=== PATIENT | male | born 1955 | race Hispanic/Latino ===

== ENCOUNTER 2017-03-25 23:17 | Emergency (ER) | payer SELFPAY ==
--- NOTE | 2017-03-25 23:52 | ED PDOC ---
Arrival/HPI - General Chief Complaint: Cardiac Arrest Time Seen by Provider: 03/25/17 23:24 Historian: EMS - History of Present Illness Narrative History of Present Illness (Text): 03/25/17 23:15 Mateusz Loaiza is a 61 year old male, whose past medical history includes tobacco abuse, who presents to the Emergency department brought in by EMS for cardiac arrest, CPR in progress. As per EMS, patient was found unresponsive on the floor by a family member after eating. As per family, patient had been unwell for the past few days. EMS arrived and CPR was commenced. EMS report patient was down for 25 minutes prior to arrival. Limited HPI and ROS due to cardiac arrest. No PMD Time/Duration: 1/2 hour Symptom Onset: Sudden Symptom Course: Unchanged Activities at Onset: Light, Eating Context: Home Past Medical History - Provider Review Nursing Documentation Reviewed: Yes - Infectious Disease Hx of Infectious Diseases: None - Psychiatric Hx Substance Use: No - Anesthesia Hx Anesthesia: No Hx Anesthesia Reactions: No Hx Malignant Hyperthermia: No Family/Social History - Physician Review Nursing Documentation Reviewed: Yes Family/Social History: No Known Family HX Smoking Status: Heavy Smoker > 10 Cigarettes Daily Hx Alcohol Use: Yes Frequency of alcohol use: Daily Hx Substance Use: No Allergies/Home Meds Allergies/Adverse Reactions: Allergies No Known Allergies Allergy (Verified 03/25/17 23:22) Home Medications: Home Meds Medication Instructions Recorded Confirmed No Known Home Med 03/25/17 03/25/17 Review of Systems - Review of Systems Systems not reviewed;Unavailable: Other (Cardiac arrest) Physical Exam Vital Signs Reviewed: Yes Vital Signs Temp Pulse Resp BP Pulse Ox 03/25/17 23:50 97.4 F L 0 L 0 L 0/0 L 88 L Temperature: Afebrile Blood Pressure: Other (0/0) Pulse: Pulseless Respiratory Rate: Apneic Appearance: Positive for: Ill-Appearing Pain Distress: None Mental Status: Positive for: other (unresponsive) - Systems Exam Head: Present: Atraumatic, Normocephalic Pupils: Present: Non-Reactive (Fixed, non-reactive) Conjunctiva: Present: Normal Mouth: Present: Moist Mucous Membranes Neck: Present: Normal Range of Motion Respiratory/Chest: Present: Other (Equally breath sounds bilaterally) Cardiovascular: Present: Other (Pulseless). No: Peripheal Pulses Present Abdomen: No: Tenderness, Distention Upper Extremity: No: Edema Lower Extremity: No: Edema Neurological: Present: Other (Unresponsive). No: GCS=15 Skin: No: Dry, Rashes, Normal Color (Central cyanosis) Medical Decision Making ED Course and Treatment: 03/25/17 23:15 Impression: 61 year old male brought in by EMS, CPR in progress, for cardiac arrest. Differential Diagnosis include but are not limited to: cardiac arrest Progress Notes: 03/25/17 23:15 Pt arrived to ED via, CPR in progress, BVM in place. Placed on continuous telemetry. ACLS protocol commenced. Respiratory therapist to bedside. 03/25/17 23:16 CPR interrupted. Asystole. No palpable pulses. CPR continued. Epi given. 03/25/17 23:20 CPR interrupted. Asystole. No palpable pulses. CPR continued. Epi #2 given. 03/25/17 23:24 CPR interrupted. Asystole. No palpable pulses. CPR continued. Epi #3 given. PROCEDURE: INTUBATION Performed by the emergency provider Consent: Discussion of the risks, benefits, and alternatives to the procedure, along with informed consent was precluded by the urgency of the procedure and the patient condition. Timeout: A timeout to verify the correct patient, procedure, and site was performed. Indication: Cardiac arrest Pre-oxygenation: [id number] Medications: See MAR for details. ETT Size: 8.0 gauge Confirmation: Cords directly visualized as tube passed, good bilateral breath sounds, positive CO2 detector color change, tube fogging, adequate chest rise, improving pulse oximetry reading, and absence of gastric sounds,. ETT Secured: The cuff was inflated and the tube was secured appropriately at a distance of 23 cm at the lip. Post-Procedure: There were no immediate complications. CXR Confirmation: No 03/25/17 23:28 CPR interrupted. Asystole . No palpable pulses. CPR continued. Epi #4 given. 03/25/17 23:32 CPR interrupted. Bedside US performed, shows PEA. No palpable pulses. CPR continued. Epi #5 given. 03/25/17 23:36 CPR interrupted. PEA. No palpable pulses. CPR continued. Epi #6 given. 03/25/17 23:40 CPR interrupted. No palpable pulses. CPR continued. Epi #7 given. 03/25/17 23:44 CPR interrupted. monitor and storage bin tender shows V-fib. Defibrillation at 200J, continued V-fib. No palpable pulses. CPR continued. 03/25/17 23:45 CPR interrupted. monitor and storage bin tender shows V-fib. Defibrillation at 360J, continued V-fib. No palpable pulses. CPR continued. Epi #8 given. 03/25/17 23:47 CPR interrupted. monitor and storage bin tender shows V-fib. Defibrillation at 360J. PEA. No palpable pulses. CPR continued. Epi #9 given. 03/25/17 23:48 CPR interrupted. No palpable pulses. Asystole. Bedside US performed shows absence of any cardiac activity. Total doses of Epi:9. See nursing documentation. Time of 23:48. lease examiner notified. 03/25/17 23:50 Family present in Emergency department. Counseled in person regarding pt's case and resuscitation efforts. Questions answered at this time. - Scribe Statement The provider has reviewed the documentation as recorded by the Scribe Julianne Spencer All medical record entries made by the Scribe were at my direction and personally dictated by me. I have reviewed the chart and agree that the record accurately reflects my personal performance of the history, physical exam, medical decision making, and the department course for this patient. I have also personally directed, reviewed, and agree with the discharge instructions and disposition. Disposition/Present on Arrival - Present on Arrival Any Indicators Present on Arrival: No History of DVT/PE: No History of Uncontrolled Diabetes: No Urinary Catheter: No History of Decub. Ulcer: No History Surgical Site Infection Following: None - Disposition Have Diagnosis and Disposition been Completed?: Yes Diagnosis: Cardiac arrest Disposition: WITH WITHOUT AUTOPSY Disposition Time: 00:48 Condition: Referrals: PCP,NO [Primary Care Provider] - Follow up with primary
[2017-03-26 00:04] VITALS: BP 0/0; PULSE 0; RESP 0; TEMP 97.4; O2SAT 88
== END 2017-03-26 02:05 ==
LOC: ED 23:17
DX: I46.9 Cardiac arrest, cause unspecified (principal)